=== PATIENT | female | born 1980 | race Caucasian/White ===

== ENCOUNTER → 2020-08-15 00:28 | Outpatient (CLI) | payer OTHER, SELFPAY ==
[2020-08-15 19:28] LABS: SARS-CoV-2 RNA PCR Negative
== END ==
PROVIDERS: PCP Internal Medicine; Visit Provider Surgery
DX: Z01.812 Encounter for preprocedural laboratory examination (principal); Z20.822 Contact with and (suspected) exposure to COVID-19
CPT/HCPCS: C9803; U0003; U0005

== ENCOUNTER 2020-08-16 10:07 | Outpatient (CLI) | payer OTHER, MEDICAID, SELFPAY ==
--- NOTE | 2020-08-16 | ECHO_ITS ---
Patient Info Name: Ju Lee Age: 40 years : 1980 Gender: Female Ht: 65 in Wt: 235 lbs BSA: 2.26 m2 HR: 73 bpm BP: 117 / 73 mmHg Heart Rhythm: Sinus Rhythm Exam Date: 08/16/2020 11:17 AM Exam Location: [facility] Patient Status: Outpatient Admit Date: 08/16/2020 Staff Ordering Physician: aJme Jay MD Wheelchair Van Operator First Responder: Laureen Osorio RDCS Attending Provider: Jame Jay MD Referring Physician: Misty FISHMAN; Exam Type: CA echo doppler color flow Study Info Indications - PRE, CHEMO Complete two-dimensional, color flow and Doppler transthoracic echocardiogram is performed. Summary 1. Complete two-dimensional, color flow and Doppler transthoracic echocardiogram is performed. 2. Left ventricular chamber dimension is normal. 3. Left ventricular systolic function is normal, estimated at 60-65%. 4. The left ventricular diastolic function is normal. 5. E/e' 6 is not elevated. 6. Global longitudinal strain is normal at -20.1%. 7. There is trace tricuspid valve regurgitation. 8. No pulmonary hypertension, estimated pulmonary arterial systolic pressure is 28 mmHg. Left Ventricle E/e' 6 is not elevated. Global longitudinal strain is normal at -20.1%. Left ventricular chamber dimension is normal. Left ventricular systolic function is normal, estimated at 60-65%. The left ventricular diastolic function is normal. Right Ventricle Right ventricular chamber dimension is normal. Right ventricular systolic function is normal. Left Atria Left atrial chamber dimension is normal. Right Atria Right atrial chamber dimension is normal. Aortic Valve The aortic valve is trileaflet. There is no aortic valve stenosis. There is no aortic valve regurgitation. Pulmonic Valve There is no pulmonic regurgitation. Mitral Valve There is no mitral valve stenosis. There is no mitral valve regurgitation. Tricuspid Valve There is trace tricuspid valve regurgitation. No pulmonary hypertension, estimated pulmonary arterial systolic pressure is 28 mmHg. Pericardium/Pleural There is no pericardial effusion. Inferior Vena Cava Normal inferior vena cava with >50% collapse upon inspiration consistent with normal right atrial pressure, 5 mmHg. Aorta The aortic root size at the sinus of Valsalva is normal. Left Ventricular Outflow Tract Name Value Normal LVOT 2D LVOT Diameter 2.1 cm LVOT Doppler LVOT Peak Gradient 5 mmHg LVOT Mean Gradient 2 mmHg LVOT VTI 24 cm LVOT VTI/AV VTI Ratio 0.7 LVOT Stroke Volume 85 ml LVOT CO 5.1 l/min LVOT CI 2.3 l/min/m2 Pulmonic Valve Name Value Normal RVOT Doppler
== END 2020-08-16 10:08 | disposition home or self-care (01) ==
PROVIDERS: PCP Internal Medicine; Visit Provider Internal Medicine Medical Oncology
DX: C50.212 Malignant neoplasm of upper-inner quadrant of left female breast (principal); Z17.1 Estrogen receptor negative status [ER-]; Z01.818 Encounter for other preprocedural examination
CPT/HCPCS: 93306

== ENCOUNTER 2020-08-16 12:02 | Outpatient (CLI) | payer OTHER, MEDICAID, SELFPAY ==
[2020-08-16 12:48] LABS: Basophils Absolute Auto 0.1 K/mm3 (0.0-0.1); Basophils Percent Auto 0.5 % (0.2-1.2); Eosinophils Percent Auto 0.2 % (0-4.4); Hematocrit 38.1 % (37.0-47.0); Hemoglobin 12.5 g/dL (12.0-15.0); Immature Granulocyte Absolute 0.05 K/mm3 (0.00-0.031); Immature Granulocyte Percent A 0.5 % (0-0.5); Lymphocytes Absolute Auto 2.35 K/mm3 (0.9-3.2); Lymphocytes Percent Auto 21.6 % (18.3-44.2); Mean Corpuscular HGB Conc 32.8 g/dl (32-36); Mean Corpuscular Hemoglobin 28.1 pg (26-34); Mean Corpuscular Volume 85.6 fl (80-100); Mean Platelet Volume 9.5 fl (7.4-10.4); Monocytes Absolute Auto 0.7 K/mm3 (0.1-0.6); Monocytes Percent Auto 6.2 % (2.6-8.5); Neutrophils Absolute Auto 7.8 K/mm3 (1.3-6.7); Platelet Count Result 397 k/mm3 (150-375); Red Blood Count 4.45 M/mm3 (4.2-5.4); Red Cell Distribution Width 14.5 % (11.5-14.5); White Blood Count 10.9 K/mm3 (4.5-10.0)
[2020-08-16 12:55] LABS: INR 0.9; Prothrombin Time 13.2 Seconds (11.1-14.7)
[2020-08-16 12:56] LABS: Partial Thromboplastin Time 29.4 SECONDS (22.3-36.8)
== END 2020-08-16 12:03 | disposition home or self-care (01) ==
PROVIDERS: PCP Internal Medicine; Visit Provider Surgery
DX: C50.919 Malignant neoplasm of unspecified site of unspecified female breast (principal); Z01.818 Encounter for other preprocedural examination
CPT/HCPCS: 36415; 85025; 85610; 85730

== ENCOUNTER 2020-08-18 00:51 | Day surgery (SDC) | payer OTHER, MEDICAID, SELFPAY ==
[2020-08-12 09:29] VITALS: BMI 39.4
--- NOTE | ~2020-08-18 | XR_ITS ---
EXAMINATION: XR chest port-a-cath/central INDICATION: Port-A-Cath insertion TECHNIQUE: Portable AP view the chest is obtained at 1530 hours COMPARISON: None available FINDINGS: A right subclavian Port-A-Cath ends with its tip at the superior cavoatrial junction. There are patchy opacities of the lung bases, likely atelectasis. There is no pleural effusion or pneumoth orax. The cardiomediastinal silhouette is normal. IMPRESSION: 1. Right subclavian Port-A-Cath ending with its tip at the superior cavoatrial junction. No pneumotho rax. Reviewed, dictated and finalized at location A. IMPRESSION: 1. Right subclavian Port-A-Cath ending with its tip at the superior cavoatrial junction. No pneumothorax.
--- NOTE | ~2020-08-18 | XR_ITS ---
EXAMINATION: XR fl guide central line place EXAM DATE: 08/18/2020 17:03 INDICATION: Isael catheter insertion. TECHNIQUE: Fluoroscopy used during XR fl guide central line place performed by Dr. Berta Herrera MD. Radiologist was not present for the imaging or procedure. Total fluoroscopic time of 0.5 minute s. A total of 2 images obtained for the exam. The DAP for this procedure was 0.2 mGym2. FINDINGS: Images demonstrate a right-sided portacatheter, tip poorly visualized but extending toward the cavoatrial junction Correlate with procedure note. IMPRESSION: Fluoroscopy used during right-sided portacatheter insertion. Reviewed, dictated and finalized at location A.
--- NOTE | 2020-08-18 13:51 | WPDANESEPPF ---
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 Patient Data Age: 40 Gender: F Height: 5 ft 5 in Weight: 107.5 kg Allergies Allergy/AdvReac Type Severity Reaction Status Date / Time No Known Allergies Allergy Verified 08/12/20 09:28 Home Medications Medication Instructions Recorded Confirmed Type Lactobacillus acidophilus 10,000 mmu cells PO DAILY 08/12/20 08/12/20 History [Probiotic] calcium carbonate-vitamin D3 1 tablet PO DAILY 08/12/20 08/12/20 History [Vitamin D3 (with calcium carb)] carica papaya [Papaya Enzyme] 1 tablet PO DAILY 08/12/20 08/12/20 History folic acid 0.4 mg PO DAILY 08/12/20 08/12/20 History multivitamin 1 tablet PO DAILY 08/12/20 08/12/20 History zinc-magnesium aspart-vit B6 [Zinc 1 cap PO DAILY 08/12/20 08/12/20 History Magnesium Aspartate] Patient hx anesthesia problems: none Family hx anesthesia problems: other (mother slow to awaken) [facility] Past Medical History Medical History Breast cancer SIRISHA (obstructive sleep apnea) Social History Social History Smoking status: Never smoker Alcohol intake: never Substance use: current Substance use type: marijuana Other substance usage details: CBD GUMMIES Living arrangements: with family Spiritual care concerns: No Anes - Eval Final PreProcedure Day of Procedure 08/18/20 13:51 Patient weight: obese Heart: regular rate and rhythm Lungs: clear to auscultation Airway: Mallampati scale class II Neurological: alert and oriented Last oral intake: >/= 8 hours ASA classification: III Emergent: no Anesthetic plan: proceed Anesthesia type and monitoring: general GIVS and standard monitoring Informed Consent: The patient's anesthetic plan and its attendant risks and benefits were discussed with the patient/family/POA. Questions were solicited and answers provided to the satisfaction of the patient/family/POA.
[2020-08-18 13:56] VITALS: BP 116/70; PULSE 81; RESP 18; TEMP 37.1; O2SAT 99
--- NOTE | 2020-08-18 14:05 | PM.IMHP ---
H&P: HPI History of Present Illness Date/Time: 08/18/20 14:05 Pt is a 40 y/o F presenting c L breast cancer. Pt is going to undergo neoadjuvant chemoradiation. Pt denies any previous central venous cath. Chief Complaint: L breast cancer Review of Systems Review of Systems: All systems reviewed & are unremarkable except as noted in HPI and below PMFSH Past Medical History Medical History Breast cancer SIRISHA (obstructive sleep apnea) Social History Social History Smoking status: Never smoker Alcohol intake: never Substance use: current Substance use type: marijuana Other substance usage details: CBD GUMMIES Living arrangements: with family Spiritual care concerns: No Meds Home Medications and Allergies Home Medications Medication Instructions Recorded Confirmed Type Lactobacillus acidophilus 10,000 mmu cells PO DAILY 08/12/20 08/12/20 History [Probiotic] calcium carbonate-vitamin D3 1 tablet PO DAILY 08/12/20 08/12/20 History [Vitamin D3 (with calcium carb)] carica papaya [Papaya Enzyme] 1 tablet PO DAILY 08/12/20 08/12/20 History folic acid 0.4 mg PO DAILY 08/12/20 08/12/20 History multivitamin 1 tablet PO DAILY 08/12/20 08/12/20 History zinc-magnesium aspart-vit B6 [Zinc 1 cap PO DAILY 08/12/20 08/12/20 History Magnesium Aspartate] Allergies Allergy/AdvReac Type Severity Reaction Status Date / Time No Known Allergies Allergy Verified 08/12/20 09:28 Vital Signs Vital Signs - 24 hr 08/18/20 13:56 Temperature 37.1 C Pulse Rate 81 Respiratory Rate 18 Blood Pressure 116/70 Pulse Oximetry 99 Exam Const: General: cooperative, comfortable and no acute distress Nutritional Appearance: obese Orientation/consciousness: patient oriented x3 Limitations: no limitations HENMT: Head: normal to inspection Neck: Neck: normal visual inspection, full ROM and no lymphadenopathy Chest: Chest palpation & inspection: normal inspection of the chest Resp: Effort & Inspection: normal respiratory effort Auscultation: clear to auscultation bilaterally Cardio: Rate: regular rate Rhythm: regular rhythm GI: Inspection: normal to inspection, distended and incision GI Palp: Yes Soft to palpation and No Tenderness to palpation present (GI) Assessment and Plan Assessment and plan (1) Breast cancer: Code(s): C50.919 - Malignant neoplasm of unspecified site of unspecified female breast Status: Acute Assessment and Plan: will setup for R sided VAD placment
--- NOTE | 2020-08-18 14:08 | WPDHPUPDATE1 ---
History and Physical Update Update Date/Time: 08/18/20 14:08 History and Physical has been reviewed, including an updated exam of the patient. There are NO changes in the patient's condition. Risks, benefits, and alternatives have been discussed and questions answered. Patient agrees to proceed with procedure.
[2020-08-18] MEDS: LACTATED RINGERS 1,000 ML 30 ML IV CONT (14:14)
[2020-08-18] MEDS: KETOROLAC 15 MG/ML VIAL (*BKC) IV PUSH (14:15)
[2020-08-18] MEDS: ceFAZolin 2 GM/D5W 50 ML 2 GM/50 ML BAG IVPB (14:58)
[2020-08-18] MEDS: HEPARIN SODIUM, PORCINE 10,000 UNITS/10 ML VIAL 10 UNITS XX (15:00)
[2020-08-18] MEDS: HEPARIN SODIUM 5,000 UNITS/ML VIAL 5000 UNITS IRRIGATION (15:01)
[2020-08-18] MEDS: BUPIVACAINE/EPINEPHRINE 0.5% 10 ML VIAL 30 ML INFILTRATE (15:02)
[2020-08-18 15:15] VITALS: BP 90/52; PULSE 90; RESP 14; O2SAT 94
[2020-08-18 15:45] VITALS: BP 107/63; PULSE 64; RESP 14
--- NOTE | 2020-08-18 15:47 | PM.PROC ---
Procedure Note - Detailed Date of procedure: 08/18/20 Pre-op diagnosis: malignant neoplasm upper/inner quad. of lt breast Post-op diagnosis: same Procedure performed: placement of right subclavian venous access device under fluroscopic guidance Description of procedure: Patient was brought into the operating room and placed in the supine position. After adequate induction of mac anesthesia, the patient was prepped and draped in normal sterile fashion. Time-out was then done to verify the patient's identity, as well as the procedure being performed. I began by making a small incision in the right chest, I then gained access into the right subclavian vein with an 18 gauge needle. I then placed the guidewire into the vein and confirmed placement via fluoroscopic guidance. I then locally anesthetized the area in the right chest. I then enlarged the incision around the guidewire including making a subcutaneous pocket inferiorly to allow placement of the port itself. I then placed a dilating sheath over the guidewire into the right subclavian vein via sterile Seldinger technique. This was once again done and confirmed via fluoroscopic guidance. I then removed the dilator and the guidewire, now just leaving the sheath in the vein. I then fed the previously flushed catheter into the right subclavian vein under fluoroscopic guidance. At approximately 16 cm, the catheter was noted to be near the atrial caval junction. I then peeled away the sheath, now just leaving the catheter in the vein. I then was able to easily draw and flush from the catheter. The catheter was cut to fit and attached to the port itself. The port was placed into the previously made subcutaneous pocket and sutured in with 0 Ethibond suture. Final fluoroscopic view showed the termination of the catheter at the atrial caval junction with a nice smooth curvature back to the port itself. I was able to gain access to the port with a Arteaga needle and was able to easily draw and flush from the port. I then flushed 4 cc of a final heparin flush into the port. The incision was closed with 3 0 Vicryl suture in the subcutaneous tissue and the skin was closed with 4 O Monocryl subcuticular suture. Dermabond was then placed on wound. The patient tolerated the procedure well and will be sent to the recovery room in stable condition. Implants: R SCV VAD Anesthesia: MAC and local Surgeon: Berta Herrera MD Estimated blood loss (mL): 5 Drains: No Packing: No Pathology: none sent Complications: No immediate complications Condition: stable Disposition: PACU Findings: placement of R SCV VAD via 1st stick
[2020-08-18 16:15] VITALS: BP 104/71; PULSE 61; RESP 14
== END 2020-08-18 16:35 | disposition home or self-care (01) ==
PROVIDERS: PCP Internal Medicine; Visit Provider Surgery
PROC: (CPT 36561; principal; 2020-08-18 15:30)
DX: C50.212 Malignant neoplasm of upper-inner quadrant of left female breast (principal); G47.33 Obstructive sleep apnea (adult) (pediatric); E66.9 Obesity, unspecified; Z68.39 Body mass index [BMI] 39.0-39.9, adult
CPT/HCPCS: 36561; 36415; 77001; 85025; 85610; 85730; 93306; C1788; C9803; J0690; J1644; J1885; J2250; J2704; J7030; J7120; U0003; U0005

== ENCOUNTER 2020-12-28 13:50 | Outpatient (CLI) | payer OTHER, MEDICAID, SELFPAY ==
--- NOTE | 2020-12-28 | ECHO_ITS ---
Patient Info Name: Ju Lee Age: 40 years : 1980 Gender: Female Ht: 65 in Wt: 225 lbs BSA: 2.21 m2 HR: 73 bpm BP: 100 / 64 mmHg Technical Quality: Good Exam Date: 12/28/2020 2:16 PM Exam Location: [facility] Patient Status: Outpatient Admit Date: 12/28/2020 Staff Ordering Physician: Beck Lanier MD Contact Agent: Vale Verduzco RDCS Attending Provider: Beck Lanier MD Referring Physician: Yolande CID; Exam Type: CA echo doppler color flow Study Info Indications - malignant neoplasm left breast ca Complete two-dimensional, color flow and Doppler transthoracic echocardiogram is performed. Summary 1. Complete two-dimensional, color flow and Doppler transthoracic echocardiogram is performed. 2. Left ventricular chamber dimension is normal. 3. Left ventricular systolic function is normal, estimated at 60-65%. 4. The left ventricular diastolic function is grade I diastolic dysfunction. 5. E/e' 6 is not elevated. 6. Global longitudinal strain is normal at -20.7%. 7. Left atrial chamber dimension is mildly enlarged. 8. No pulmonary hypertension, estimated pulmonary arterial systolic pressure is 23 mmHg. Left Ventricle E/e' 6 is not elevated. Global longitudinal strain is normal at -20.7%. Left ventricular chamber dimension is normal. Left ventricular systolic function is normal, estimated at 60-65%. The left ventricular diastolic function is grade I diastolic dysfunction. Right Ventricle Right ventricular chamber dimension is normal. Right ventricular systolic function is normal. Left Atria Left atrial chamber dimension is mildly enlarged. Right Atria Right atrial chamber dimension is normal. Aortic Valve The aortic valve is not well visualized. Cannot determine number of aortic valve leaflets. There is no aortic valve stenosis. There is no aortic valve regurgitation. Pulmonic Valve There is no pulmonic regurgitation. Mitral Valve There is no mitral valve stenosis. There is no mitral valve regurgitation. Tricuspid Valve There is no tricuspid valve regurgitation. No pulmonary hypertension, estimated pulmonary arterial systolic pressure is 23 mmHg. Pericardium/Pleural There is no pericardial effusion. Inferior Vena Cava Normal inferior vena cava with >50% collapse upon inspiration consistent with normal right atrial pressure, 5 mmHg. Aorta The aortic root size at the sinus of Valsalva is normal. Left Ventricular Outflow Tract Name Value Normal LVOT 2D LVOT Diameter 2.0 cm LVOT Doppler LVOT Peak Gradient 6 mmHg LVOT Mean Gradient 3 mmHg LVOT VTI 24 cm LVOT VTI/AV VTI Ratio 0.8 LVOT Stroke Volume 75 ml LVOT CO 16.3 l/min LVOT CI 7.4 l/min/m2 Pulmonic Valve Name Value Normal
== END 2020-12-28 13:51 | disposition home or self-care (01) ==
LOC: ANHCARD 13:51
PROVIDERS: PCP Internal Medicine; Visit Provider Internal Medicine Hematology & Oncology
DX: C50.212 Malignant neoplasm of upper-inner quadrant of left female breast (principal); Z17.1 Estrogen receptor negative status [ER-]
CPT/HCPCS: 93306

== ENCOUNTER → 2021-01-09 00:21 | Outpatient (CLI) | payer OTHER, MEDICAID, SELFPAY ==
[2021-01-09 23:32] LABS: SARS-CoV-2 RNA PCR Negative
== END ==
PROVIDERS: PCP Internal Medicine
DX: C50.212 Malignant neoplasm of upper-inner quadrant of left female breast (principal); Z17.1 Estrogen receptor negative status [ER-]
CPT/HCPCS: C9803; U0003; U0005